=== PATIENT | male | born 1965 | race Caucasian/White ===

== ENCOUNTER 2021-09-04 10:33 | Observation (INO) ==
--- NOTE | 2021-08-31 11:47 | Anesthesiology Consultation ---
Date of Service August 31, 2021 Assessment & Plan (1) Encounter for pre-operative examination: Chart Review Chart Review: Acceptable Risk for Surgery (pending preop Covid testing results and DOS labs ) and Patient NOT seen in Pre Admission Testing -No preop labs done- will order CBC with diff, PRP, coags for DOS. Per nursing assessment 08/30/21, patient admits to travel to [facility] in the past 30 days. No known Covid positive exposures or Covid related symptoms. No known Covid infection in the past 90 days. Wears mask when required. Pt is fully vaccinated for Covid. Preop Covid testing 08/31/21= results pending History Surgery Operation Date: 09/04/21 12:15 Proposed Procedures p Right Shoulder Arthroscopic Subacromial Decompression, Distal Clavicle Excision, Rotator Cuff Repair with Possible Rotator Cuff Repair with Regen[employer]plant - Homar Taylor MD Height/Weight Height: 6 ft Weight: 145.15 kg Allergies Allergy/AdvReac Type Severity Reaction Status Date / Time bee venom protein (honey bee) Allergy Unknown Anaphylaxis Verified 08/30/21 09:00 Medications Home Medications Medication Instructions Recorded Confirmed Last Taken albuterol sulfate 90 mcg/actuation 2 puff INHALATION QID PRN 03/09/21 08/30/21 Unknown aerosol inhaler baclofen 10 mg tablet 10 mg PO TID PRN 03/09/21 08/30/21 Unknown bupropion HCl 150 mg 24 hr tablet, 150 mg PO BID 03/09/21 08/30/21 Unknown extended release buspirone 15 mg tablet 30 mg PO BID 03/09/21 08/30/21 Unknown cetirizine 10 mg tablet 10 mg PO QPM 03/09/21 08/30/21 Unknown cholecalciferol (vitamin D3) 125 125 mcg PO QAM 03/09/21 08/30/21 Unknown mcg (5,000 unit) tablet (Vitamin D3) cyanocobalamin (vitamin B-12) 1,000 mcg IM UD 03/09/21 08/30/21 Unknown 1,000 mcg/mL injection solution gabapentin 800 mg tablet 800 mg PO QID 03/09/21 08/30/21 Unknown lisinopril 20 1 tab PO QAM 03/09/21 08/30/21 Unknown mg-hydrochlorothiazide 12.5 mg tablet oxycodone 15 mg tablet 15 mg PO BID PRN 03/09/21 08/30/21 Unknown venlafaxine 150 mg 150 mg PO QAM 03/09/21 08/30/21 Unknown capsule,extended release 24 hr vitamin E 400 unit capsule 400 unit PO QAM 03/09/21 08/30/21 Unknown oxycodone 15 mg tablet,extended 15 mg PO BID 08/30/21 08/30/21 Unknown release,12 hr Past Medical History Medical History Anxiety Asthma Well controlled per pt, albuterol rescue 3 DAYS AGO - DENIES CURRENT FLARE UP Chronic back pain Chronic obstructive pulmonary disease Controlled, stable. Depression DVT (deep venous thrombosis) 1980s following trauma after fell off ladder GERD (gastroesophageal reflux disease) well controlled, stable, denies symptoms x 15 yrs ago since reduced stress, denies issues laying flat Hypertension Controlled, stable per pt Morbid obesity Multiple sclerosis Follows with PCP, baseline right leg neuropathy with limp, occasional falls, reports last flare 6 months ago, expresses has been advised to use cane. Sleep apnea BIPAP (not used d/t current device currently recall) Stroke x3, most recent > 7 years ago, residual short term memory loss Past Family History Family History Daughter Family history of reaction to anesthesia PONV, Slow to wake up Grandfather Family history of esophageal cancer Other Family history of cancer in father Past Surgical History Surgical History (Updated 08/31/21 @ 11:54 by Jasmin Russo PA-C) History of arthroscopy R knee History of back surgery 2018/2019 laminectomy L1-L3 per pt History of cardiac cath 1997 OR 1998 - NO FINDINGS Nodule of neck From posterior neck S/P insertion of spinal cord stimulator Medtronic vs St Erasmo per patient Does not have remote- spinal cord stimulator NO LONGER FUNCTIONS Social History Smoking Status: Former smoker tobacco type: cigarettes Do You Dip or Chew Tobacco: No Smoking End Date: NOV 2 YRS AGO Hx Alcohol Use: Yes Alcohol type: hard liquor alcohol intake frequency: a few times a month Alcohol Intake Frequency Comment: ON AVERAGE 3-4 X PER MONTH Hx Substance Use: No substance use type: prescription drug Testing Electrocardiogram Date: 03/14/21 Normal sinus rhythm, rate 75 bpm. Normal ECG per cardio Chest X-Ray Date: 03/24/21 No pulmonary nodules visible on the study. Left lung base atelectasis. Spinal cord stimulator in place.
--- NOTE | 2021-09-03 20:30 | History & Physical Report ---
Date of Service September 03, 2021 Assessment & Plan (1) Full thickness rotator cuff tear: Plan: Treatment options discussed with the patient. He has failed conservative measures. He has a full thickness tear of his rotator cuff. Surgical intervention recommended. Risks, benefits and alternatives to surgery including but not limited to infection, DVT, pain, stiffness, need for revision surgery, damage to blood vessels, damage to nerves, PE, , were discussed with the patient and they wish to proceed. Plan on right shoulder arthroscopy with subacromial decompression, distal clavicle excision, rotator cuff repair, possible rotator cuff repair with Regeneten biologic implant. Surgery scheduled for [facility] on 09/04/[address] Taylor. All questions answered. He will follow up post op. Rotator cuff tear trauma status: unspecified whether traumatic Laterality: right Qualified Code(s): M75.121 - Complete rotator cuff tear or rupture of right shoulder, not specified as traumatic History of Present Illness Chief Complaint: Right shoulder pain Primary Care Provider: Mihaela Alvarado 55 year old male with PMHx significant for HTN, COPD, stroke, MS, and axiety who presents with ongoing right shoulder pain. Pain in interfering with patients daily activities. He has failed conservative measures including pain medication and injection. He has a full thickness rotator cuff tear and surgical interve ntion recommended. Patient denies headaches, sweats, fevers, chills, double vision, blurred vision, cough, sore throat, dysphagia, chest pain, sob, wheezing, n/v/d/c, numbness, tingling, fatigue, urinary symptoms, mood disorders. ROS positive for right shoulder pain and stiffness. Allergies Allergy/AdvReac Type Severity Reaction Status Date / Time bee venom protein (honey bee) Allergy Unknown Anaphylaxis Verified 08/30/21 09:00 Home Medications Medication Instructions Recorded Confirmed Type albuterol sulfate 90 mcg/actuation 2 puff INHALATION QID PRN 03/09/21 08/30/21 History aerosol inhaler baclofen 10 mg tablet 10 mg PO TID PRN 03/09/21 08/30/21 History bupropion HCl 150 mg 24 hr tablet, 150 mg PO BID 03/09/21 08/30/21 History extended release buspirone 15 mg tablet 30 mg PO BID 03/09/21 08/30/21 History cetirizine 10 mg tablet 10 mg PO QPM 03/09/21 08/30/21 History cholecalciferol (vitamin D3) 125 125 mcg PO QAM 03/09/21 08/30/21 History mcg (5,000 unit) tablet (Vitamin D3) cyanocobalamin (vitamin B-12) 1,000 mcg IM UD 03/09/21 08/30/21 History 1,000 mcg/mL injection solution gabapentin 800 mg tablet 800 mg PO QID 03/09/21 08/30/21 History lisinopril 20 1 tab PO QAM 03/09/21 08/30/21 History mg-hydrochlorothiazide 12.5 mg tablet oxycodone 15 mg tablet 15 mg PO BID PRN 03/09/21 08/30/21 History venlafaxine 150 mg 150 mg PO QAM 03/09/21 08/30/21 History capsule,extended release 24 hr vitamin E 400 unit capsule 400 unit PO QAM 03/09/21 08/30/21 History oxycodone 15 mg tablet,extended 15 mg PO BID 08/30/21 08/30/21 History release,12 hr Past Med/Surg History Medical History (Updated 09/03/21 @ 20:28 by Jose Armando Mello PA-C) Anxiety Asthma Well controlled per pt, albuterol rescue 3 DAYS AGO - DENIES CURRENT FLARE UP Chronic back pain Chronic obstructive pulmonary disease Controlled, stable. Depression DVT (deep venous thrombosis) 1980s following trauma after fell off ladder GERD (gastroesophageal reflux disease) well controlled, stable, denies symptoms x 15 yrs ago since reduced stress, denies issues laying flat Hypertension Controlled, stable per pt Morbid obesity Multiple sclerosis Follows with PCP, baseline right leg neuropathy with limp, occasional falls, reports last flare 6 months ago, expresses has been advised to use cane. Sleep apnea BIPAP (not used d/t current device currently recall) Stroke x3, most recent > 7 years ago, residual short term memory loss Surgical History (Updated 08/31/21 @ 11:54 by Jasmin Russo PA-C) History of arthroscopy R knee History of back surgery 2017/2018 laminectomy L1-L3 per pt History of cardiac cath 1997 OR 1998 - NO FINDINGS Nodule of neck From posterior neck S/P insertion of spinal cord stimulator Medtronic vs St Erasmo per patient Does not have remote- spinal cord stimulator NO LONGER FUNCTIONS Family History Daughter Family history of reaction to anesthesia PONV, Slow to wake up Grandfather Family history of esophageal cancer Other Family history of cancer in father Social History (Updated 03/09/21 @ 10:51 by Joelle Corbin RN) Smoking Status: Former smoker Second Hand Exposure: Yes (SPOUSE USED TO SMOKE, PARENTS SMOKED); Hx Alcohol Use: Yes Alcohol type: hard liquor Hx Substance Use: No Preferred Language: Niuean Communication Ability: Effective Bus Boy Required: No Beliefs That Will Affect Care: None Current Living Situation: Spouse and Family Current Living Situation Comment: AND SON WHEN HOME FROM [employer] current occupational status: disabled Feels Safe at Home: Yes Assistive Devices: Glasses Review of Systems All systems reviewed & are unremarkable except as noted in HPI & below Physical Exam Constitutional: well developed and well nourished; no acute distress Eyes: PERRL, conjunctivae normal, anicteric sclerae ENMT: external ear and nose normal, oropharynx normal Neck: trachea midline, no thyromegaly Respiratory: normal respiratory effort, lungs clear to auscultation Cardiovascular: RRR, no murmur, no edema Musculoskeletal: Right shoulder: Tenderness AC joint, biceps tendon, AL acromion. Positive impingement signs. Positive O'nellie's, positive cross body, positive Speed's. Active painful ROM. FF to 180 degrees, abduction to 180 degrees. Strength testing is painful. Skin: no rashes, warm and dry Neurologic: patellar DTR's 2+ bilat, sensation intact Psychiatric: A+Ox3, euthymic affect Results & Data ([facility]) Diagnostic Findings Right shoulder CT arthrogram demonstrates subacromial impingement with hypertrophic AC joint with AC joint osteoarthritis. He has a full thickness tear of his supraspinatus with dye communicating to subacromial space.
[~2021-09-04 10:33] MED LIST: BUPIVACAINE 0.5 % 5 MG/1 ML PF 10ML VIAL ONE; LR 15ML/HR IV SCH
[2021-09-04] MEDS ORDERED: BUPIVACAINE 0.25% 30 ML VIAL ONE (10:43)
[2021-09-04] MEDS ORDERED: EPINEPHrine INJ 1 MG/ML AMP ONE (10:44)
[2021-09-04 11:20] LABS: Basophils # (auto) 0.04 K/uL (0-0.2); Basophils % (auto) 0.6 %; Eosinophils # (auto) 0.33 K/uL (0-0.5); Eosinophils % (auto) 4.7 %; Hematocrit (blood only) 46.7 % (42-52); Hemoglobin 15.7 g/dL (14.0-18.0); Immature Granulocytes # (auto) 0.01 K/uL (0.00-0.02); Immature Granulocytes % (auto) 0.1 %; Lymphocytes # (auto) 3.47 K/uL (1.2-3.4); Lymphocytes % (auto) 49.6 %; Mean Corpuscular Hemoglobin 30.9 pg (25-34); Mean Corpuscular Volume 91.9 fL (80-100); Mean Platelet Volume 9.9 fL (7.4-10.4); Monocytes # (auto) 0.75 K/uL (0.11-0.59); Monocytes % (auto) 10.7 %; Neutrophils % (auto) 34.3 %; Platelet Count 294 K/uL (130-400); RDW Standard Deviation 43.6 fL (36.4-46.3); Red Blood Count 5.08 M/uL (4.7-6.1)
[2021-09-04 11:25] LABS: BUN Creatinine Ratio 11.3 (10-20); Calcium 9.3 mg/dl (8.5-10.1); Creatinine Clr Calc Pharmacy 109.5 ml/min; Est GFR (African American) 83.2 ml/min; Est GFR (Non-African American) 71.7 ml/min; Potassium 3.9 mmol/L (3.5-5.1)
[2021-09-04 11:39] LABS: Mean Corpuscular Hgb Conc 33.6 g/dL (32-36)
[2021-09-04 11:54] LABS: Partial Thromboplastin Ratio 1.1; Partial Thromboplastin Time 31.5 Seconds (21.0-31.0); Prothrombin Time 10.8 Seconds (9.0-12.0)
[2021-09-04] MEDS ORDERED: DEXAMETHASONE SOD INJ 4 MG/ML VIAL ONE (12:49)
[2021-09-04] MEDS ORDERED: PROPOFOL IV EMULSION 10 MG/ML 20 ML VIAL IV ONE (12:49)
[2021-09-04] MEDS ORDERED: LIDOCAINE 2% 2 ML VIAL/AMP(20MG/ML) INFIL ONE (12:49)
[2021-09-04] MEDS ORDERED: ONDANSETRON INJ 2 MG/ML 2 ML VIAL ONE (12:49)
[2021-09-04] MEDS ORDERED: MIDAZOLAM HCL 1 MG/ML 2ML VIAL ONE ×2 (12:49→12:50)
--- NOTE | 2021-09-04 13:16 | History & Physical Bridge Note ---
Date of Service September 04, 2021 History & Physical Bridge Note I have examined the patient, reviewed the History & Physical and in the interval since the performance of the History & Physical I have noted the following changes of clinical significance: no changes noted
[2021-09-04] MEDS ORDERED: ONDANSETRON INJ 2 MG/ML 2 ML VIAL IV PRN ×2 (13:25→17:51)
[2021-09-04] MEDS ORDERED: ePHEDrine sulfate 50 MG/ML AMP IV PRN (13:25)
[2021-09-04] MEDS ORDERED: HYDROmorphone INJ 1 MG/ML SYRINGE IV PRN (13:25)
[2021-09-04] MEDS ORDERED: fentaNYL citrate 100 MCG/2 ML VIAL IV PRN (13:25)
[2021-09-04] MEDS ORDERED: ATROPINE SULFATE 0.1 MG/ML 10ML SYR IV PRN (13:25)
[2021-09-04] MEDS ORDERED: EPINEPHrine HCL INJ 1 MG/ML 30ML ONE (13:27)
[2021-09-04] MEDS ORDERED: fentaNYL citrate 100 MCG/2 ML VIAL ONE (14:01)
[2021-09-04] MEDS ORDERED: SUCCINYLCHOLINE 100MG/5ML SYR IV ONE (14:01)
[2021-09-04] MEDS ORDERED: ROCURONIUM BROMIDE 10 MG/ML 5 ML VIAL IV ONE (14:01)
[2021-09-04] MEDS ORDERED: PHENYLEPHRINE HCL 10 MG/ML VIAL ONE (14:19)
--- NOTE | 2021-09-04 16:20 | Post Operative Brief Note ---
Immediate Post Op Note v1 Date of Surgery September 04, 2021 Pre & Post Diagnosis Operation Date: 09/04/21 12:15 Pre-Op Diagnosis: Right Shoulder Impingement Syndrome, Osteoarthritis AC joint, rotator cuff tendinopathy with suspected bursal sided rotator cuff tear, obesity BMI 44. Post-Op Diagnosis: Chronic appearing high Grade Bursal Sided Rotator Cuff tear with underlying rotator cuff tendinopathy and interstitial tearing rotator cuff with subacromial impingement and AC joint osteoarthritis and subacromial bursitis, obesity BMI 44. I identified the patient and participated in the time-out.: Yes Procedure Operation Date: 09/04/21 12:15 Actual Procedures p Right Shoulder arthroscopic rotator cuff repair high-grade bursal sided rotator cuff tear with subacromial bursectomy and arthroscopic Subacromial Decompression, Distal Clavicle Excision - Homar Taylor MD Surgeon Homra Taylor MD Test Kitchen Home Economist Adriano LO Estimated Blood Loss 3 Findings Consistent with Post-Op Diagnosis Anesthesia Type General Regional Complications none Disposition Disposition: Recovery Room Overlapping Procedure I was immediately available: during the entire case.
--- NOTE | 2021-09-04 16:38 | Operative Report ---
Post Operative Report Pre & Post Diagnosis Operation Date: 09/04/21 12:15 Pre-Op Diagnosis: Right Shoulder rotator cuff tendinopathy suspected bursal sided rotator cuff tear with subacromial impingement and hypertrophic AC joint osteoarthritis, subacromial bursitis, obesity BMI 44 Post-Op Diagnosis: Right shoulder chronic appearing large high-grade bursal sided partial tear rotator cuff, subacromial impingement syndrome, hypertrophic AC joint osteoarthritis contributing to impingement, subacromial bursitis, obesity BMI 44 I identified the patient and participated in the time-out.: Yes Procedure Operation Date: 09/04/21 12:15 Actual Procedures p Right Shoulder arthroscopic rotator cuff repair high-grade bursal side rotator cuff tear, subacromial decompression, distal clavicle excision, subacromial bursectomy. Homar Taylor MD Surgeon Homar Taylor MD Recycling Specialist Adriano LO Estimated Blood Loss 3 Findings Consistent with Post-Op Diagnosis Specimens None Anesthesia Type General Regional Complications none Disposition Disposition: Recovery Room Indications 55-year-old male with chronic right shoulder pain. Patient has x-rays demonstrate hypertrophic AC joint osteoarthritis with the type II 3 acromion p rocess with spurring anterior acromion with inferior AC joint spurs causing subacromial impingement. CT arthrogram demonstrates my interpretation bursal sided rotator cuff tear with interstitial tear rotator cuff with bursitis which appears to be chronic but this does not communicate with the joint thigh which has a brighter appearance with probable articular side of the rotator cuff still being intact. Patient also has chronic pain syndrome and obesity. Description of Procedure The patient was to the operating room anesthetized under regional block and general anesthesia. The patient was positioned on the operating table in the 70 beachchair position. All of the other extremities were well-padded. The right upper extremity was prepped and draped in the usual sterile fashion. Examination demonstrated moderately obese arm more abdominal obesity than of the arm. Good passive range of motion. Arthroscopy of the shoulder was performed via anterior and posterior arthroscopy portals. Posterior portal was placed in the soft spot and the anterior portal was placed in the rotator interval. Subsequent portals included lateral subacr omial working portals and anterior and posterior superior lateral incisions for suture anchor placement. The following findings were noted: Humeral head and glenoid had normal articular surfaces. The biceps tendon was normal. Subscapularis tendon was normal. Supraspinatus tendon and infraspinatus had some tiny splits in the tendon but no clear full-thickness tear. This was consistent with tendinopathy. There is no fraying of the tendon at all on the articular side. Glenoid labrum was intact circumferentially including the superior labrum. Subacromial space was a very large crescent tear on the bursal side extending into a large interstitial tear involving the entire supraspinatus and some of the anterior infraspinatus. There is a smooth appearance to the intact tissue that was still attached to the greater trochanter consistent with chronic appearance of the tear. There was chronic subacromial bursitis and impingement. There was fraying the CA ligament type III acromion with a substantial spur extending into the CA ligament and some spur extending to the lateral acromion. There are very large inferior AC joint spurs with very tight subacromial space under the hypertrophic distal clavicle with arthritic changes of the AC joint. There was chronic scarred subacromial bursitis. Attention was first taken to clearing out all of the thickened subacromial bursa over the rotator cuff tear so it could be visualized better. The entire tear was visualized with large crescent tear with interstitial component and this was able to be mobilized over to the greater tuberosity into an anatomical position. The lateral most aspect of the tear at the greater tuberosity was debrided taking care not to detach any of the intact tissue. Fluoroscopic rasp was used to roughen up the smooth bursal surface of the underlying intact rotator cuff tissue in the undersurface of the crescent tear and interstitial tear was debrided with a 4.5 full-radius resector blade and a rasp was used to try to preserve as much tendon tissue as possible. The bursa and periosteum on the undersurface of the acromion was ablated with the radiofrequency ablator and the CA ligament was released off the anterior acromion. The CA ligament was debrided back. A 5.5 bur was used to plane down the acromion to type I flat shape. A radio frequency ablator was used to ablate the undersurface of 1 cm of the distal clavicle ablating the inferior capsule. This exposed the spurs on the undersurface of the clavicle. A 5.5 bur was used to resect 1 cm distal clavicle using the liberty through both the lateral and anterior portal. The superior and posterior capsule was preserved for stability. The rotator cuff was then repaired with an ultra braid tape used as a ripstop suture placed in an inverted mattress type fashion. 2 triple loaded 5.5 Helicoil suture anchors were placed at the lateral rotator cuff attachment site right at the area where the intact rotator cuff tissue was still attached 1 anterior and 1 posterior. 2 out of 3 of the ultra braid sutures from each anchor were passed around the ripstop suture. Sutures were passed into both supraspinatus and infraspinatus tendon tissue. The sutures were tied with A Spooner sliding locking knot with 3 reversed half hitches and alternating posts. The ultra braid tape tails posterior and anterior placed into posterior and anterior 5.5 footprint anchors laterally and were tensioned appropriately. This tape acted as a ripstop suture and took tension off the repair. The repair was secure with the arm to side and with passive range of motion there was no impingement. The portal sites were closed with interrupted nylon sutures. Sterile dressings were applied and a sling immobilizer. The patient tolerated the procedure well. My physician phlebotomist lab assistant Adriano LO participated as my accounting assistant and assisted in all aspects of the procedure including assisted in arm positioning, instrument management, suture management when indicated, incision closure, sling application, and will participate in the postoperative care of the patient. I attest to the content of the Intraoperative Record and any orders documented therein. Any exceptions are noted below.
--- NOTE | 2021-09-04 16:59 | Anesthesiology Progress Note ---
Date of Service September 04, 2021 Anesthesia Post Procedure Vital Signs Vital Signs: Temp Pulse Pulse Resp BP Pulse Ox 09/04/21 16:50 36.4 C L 92 H 16 109/71 94 09/04/21 16:40 96 H 16 121/70 94 09/04/21 16:30 90 16 116/77 94 09/04/21 16:22 36.5 C 93 H 16 133/78 94 09/04/21 11:20 36.8 C 89 20 117/86 97 Pain Intensity Lower Back: Pain Intensity: 1 Transfer of Care Handoff Completed per policy Notes Mental Status: alert / awake / arousable Patient Amnestic to Procedure: Yes Nausea / Vomiting: adequately controlled Pain: adequately controlled Airway Patency, RR, SpO2: stable & adequate BP & HR: stable & adequate Hydration State: stable & adequate Anesthetic Complications: no major complications apparent and Pt Satisfied with anesthetic care Notes: The patient is awake and comfortable. He will have continuous pulse oximetry on the floor.
[2021-09-04] MEDS ORDERED: KETOROLAC TROMETHAMINE 15 MG/ML VIAL IV PRN (17:51)
[2021-09-04] MEDS ORDERED: SODIUM CHLORIDE 0.9% 1000ML 1,000 ML IV SCH (17:51)
[2021-09-04] MEDS ORDERED: HYDROmorphone INJ 0.5 MG/0.5 ML SYR IV PRN (17:51)
[2021-09-04] MEDS ORDERED: METOCLOPRAMIDE HCL INJ 5 MG/ML 2 ML VIAL IV PRN (17:51)
[2021-09-04] MEDS ORDERED: BACLOFEN 10 MG TAB PO PRN (17:51)
[2021-09-04] MEDS ORDERED: oxyCODONE HCL IR 5 MG TAB (IMMEDIATE RELEASE) PO PRN (17:51)
[2021-09-04] MEDS ORDERED: MAGNESIUM HYDROXIDE SUSP 30 ML UDC PO PRN (17:51)
[2021-09-04] MEDS ORDERED: NALOXONE HCL 0.4 MG/1 ML VIAL/CARP IV PRN (17:51)
[2021-09-04] MEDS ORDERED: bisacodyL 10 MG SUPP PR PRN (17:51)
[2021-09-04] MEDS ORDERED: CYANOCOBALAMIN 1000 MCG/ML VIAL IM SCH (17:51)
[2021-09-04] MEDS ORDERED: ALBUTEROL HFA 8 GM INHALER INH PRN (17:51)
--- NOTE | 2021-09-04 18:51 | Hospitalist Consultation ---
Date of Consultation September 04, 2021 Assessment & Plan (1) Full thickness rotator cuff tear: As per HPI- POD #0 - Pain control per primary service- rescue Narcan as available - IVF per primary service - Diet per primary service - Dressing per primary service - Drains per primary service - Transfusion per primary service - Consider chronic pain consultation if pain becomes challenging following when local anesthesia wears off - PT/OT per primary service - ABX per primary service (2) Hypertension: Controlled - follow hemodynamics and renal function in AM - if stable in AM restart (3) Stroke: History of unsure of vessel or type - the patient is not on disease modifying medications to include asa and/or plavix (4) Asthma: Well controlled per the patient - continue EMI (5) Sleep apnea: (6) Anxiety: (7) Chronic back pain: History of Present Illness Reason for Consultation: medical management Requesting Physician: Claudia Attending Physician: Homar Taylor MD History of Present Illness 55 YOM with no information on chart for review. Patient with reported history of chronic low back pain and leg pain- nerve stimulator in place reported ~ 2013 that does not function, chronic narcotic use, YARY on BiPAP at night (unsure of settings- sent device back secondary to recall), Anxiety/depression, seasonal allergies, HTN, CVA with short term memory recall- he is unsure of type/vessel. Hospitalist service was consulted for medical management following right shoulder arthroscopic rotator cuff repair with subacromial bursectomy and subacromial decompression and distal clavicle excision under general and regional anesthesia with intubation and EBL of 3ml. Patient was evaluated in his room postoperatively. Labs from today reviewed, vital signs reviewed. Patient is briskly awake and states he is "very comfortable" following his procedure, remains with some effects from his regional anesthesia. He has no postoperative nausea, is preparing to eat his dinner. No difficulty breathing endorsed and throat is only minimally sore. 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 For his anxiety and depression he feels this is well controlled and follows with his PCP. He has his chronic pain Oxycodone SR and Oxycodone IR ordered as well as IV for acute pain. Will order BiPAP at night and reviewed use with patient with possible increased narcotic use postoperatively. He endorses no smoking, and social drinker once a week or every other week. Recommendations: - Tiered pain control with rescue Narcan as you have - BiPAP ordered 02/21 or titrate for adequate VT/SPO2 and patient tolerance- should wear at night as well as naps through the day - Follow pain control- if challenging consider further evaluation from chronic pain with his chronic opiod use - Hold AISHA/HCTz in am- follow renal function and hemodynamics- restart when applicable Allergies Allergy/AdvReac Type Severity Reaction Status Date / Time bee venom protein (honey bee) Allergy Unknown Anaphylaxis Verified 09/04/21 11:07 Home Medications Medication Instructions Recorded Confirmed Type albuterol sulfate 90 mcg/actuation 2 puff INHALATION QID PRN 03/09/21 09/04/21 History aerosol inhaler baclofen 10 mg tablet 10 mg PO TID PRN 03/09/21 09/04/21 History bupropion HCl 150 mg 24 hr tablet, 150 mg PO BID 03/09/21 09/04/21 History extended release buspirone 15 mg tablet 30 mg PO BID 03/09/21 09/04/21 History cetirizine 10 mg tablet 10 mg PO QPM 03/09/21 09/04/21 History cholecalciferol (vitamin D3) 125 125 mcg PO QAM 03/09/21 09/04/21 History mcg (5,000 unit) tablet (Vitamin D3) cyanocobalamin (vitamin B-12) 1,000 mcg IM UD 03/09/21 09/04/21 History 1,000 mcg/mL injection solution gabapentin 800 mg tablet 800 mg PO QID 03/09/21 09/04/21 History lisinopril 20 1 tab PO QAM 03/09/21 09/04/21 History mg-hydrochlorothiazide 12.5 mg tablet oxycodone 15 mg tablet 15 mg PO BID PRN 03/09/21 09/04/21 History venlafaxine 150 mg 150 mg PO QAM 03/09/21 09/04/21 History capsule,extended release 24 hr vitamin E 400 unit capsule 400 unit PO QAM 03/09/21 09/04/21 History oxycodone 15 mg tablet,extended 15 mg PO BID 08/30/21 09/04/21 History release,12 hr Patient History Medical History (Updated 09/04/21 @ 18:47 by LUIS A Matos) Anxiety Asthma Well controlled per pt, albuterol rescue 3 DAYS AGO - DENIES CURRENT FLARE UP Chronic back pain Chronic obstructive pulmonary disease Controlled, stable. Depression DVT (deep venous thrombosis) 1980s following trauma after fell off ladder GERD (gastroesophageal reflux disease) well controlled, stable, denies symptoms x 15 yrs ago since reduced stress, denies issues laying flat Hypertension Controlled, stable per pt Morbid obesity Multiple sclerosis Follows with PCP, baseline right leg neuropathy with limp, occasional falls, reports last flare 6 months ago, expresses has been advised to use cane. Sleep apnea BIPAP (not used d/t current device currently recall) Stroke x3, most recent > 7 years ago, residual short term memory loss Surgical History History of arthroscopy R knee History of back surgery 2017/2018 laminectomy L1-L3 per pt History of cardiac cath 1997 OR 1998 - NO FINDINGS Nodule of neck From posterior neck S/P insertion of spinal cord stimulator [employer] vs [employer] per patient Does not have remote- spinal cord stimulator NO LONGER FUNCTIONS Family History Daughter Family history of reaction to anesthesia PONV, Slow to wake up Grandfather Family history of esophageal cancer Other Family history of cancer in father Social History (Updated 03/09/21 @ 10:51 by Joelle Corbin RN) Smoking Status: Former smoker Smoking End Date: NOV 2 YRS AGO; Second Hand Exposure: Yes (SPOUSE USED TO SMOKE, PARENTS SMOKED); Do You Dip or Chew Tobacco: No; Hx Alcohol Use: Yes Alcohol type: hard liquor Hx Substance Use: No Preferred Language: Afghan Communication Ability: Effective Featherer Required: No Beliefs That Will Affect Care: None Current Living Situation: Spouse and Family Current Living Situation Comment: AND SON WHEN HOME FROM COLLEGE current occupational status: disabled Other Information That Helps Us Care for You: No Feels Safe at Home: Yes Assistive Devices: Glasses Review of Systems Review of Systems: REVIEW OF SYSTEMS: Constitutional: No fever, sweats or chills Eyes: No diplopia, no worsening or blurred vision ENT: normal hearing, no trouble swallowing Respiratory: (+) YARY No cough, sputum, dyspnea at rest or on exertion Cardiovascular: No chest pain, tightness or palpitations Abdomen: (+) frequent loose stools, No pain, nausea, vomiting, constipation Musculoskeletal: (+) chronic back and leg pain, right shoulder pain Neurologic: No weakness, numbness/tingling, or balance problems Psychiatric: (+) anxiety or depression Skin: No rash or itch Physical Exam Physical Exam: PHYSICAL EXAM: General: awake, alert, no apparent distress Head: Normocephalic, atraumatic ENT: PERRLA, EOMI, no pharyngeal exudate, mucous membranes moist Neuro: AAO x 3, speech clear and appropriate, strength intact bilaterally 5/5 upper and lower. Right shoulder to ac with remaining effects fromo local anesthesia. Sensation intact to chest, neck, jaw and face. Chest: equal rise and fall of the chest, no accessory muscle use, no heaves or thrills, Clear to auscultation, on room air, Cardiac: Regular rate and rhythm, S1 S2, skin warm dry, cap refill <3 seconds, peripheral pulses +2 no JVD, no murmur, no edema GI: NABS x 4 quadrants, soft, nontender to palpation, no rebound, guarding or tenderness : Spontaneously voiding, no pain, Extremities: Normal inspection, no peripheral edema or erythema, calfs nontender to palpation- scd's in place Psych: Normal mood and affect Skin: no rash or erythema Results & Data Results & Data ([facility]) Vital Signs (Past 12 Hours) Vital Signs Temp Pulse Pulse Resp BP Pulse Ox 09/04/21 18:18 36.7 C 85 18 127/82 93 09/04/21 17:54 37 C 85 18 107/68 94 09/04/21 17:30 90 20 123/70 93 09/04/21 17:20 91 H 18 107/74 93 09/04/21 17:10 90 16 102/73 94 09/04/21 17:00 36.4 C L 92 H 16 107/72 94 09/04/21 16:50 92 H 16 109/71 94 09/04/21 16:40 96 H 16 121/70 94 09/04/21 16:30 90 16 116/77 94 09/04/21 16:22 36.5 C 93 H 16 133/78 94 09/04/21 11:20 36.8 C 89 20 117/86 97 Laboratory Results Abnormal lab results 09/04/21 09/04/21 Range/Units 10:55 10:55 Lymph # (Auto) 3.47 H (1.2-3.4) K/uL [place] # (Auto) 0.75 H (0.11-0.59) K/uL APTT 31.5 H (21.0-31.0) Seconds Medications Administered Home Medications albuterol sulfate 90 mcg/actuation aerosol inhaler 2 puff INHALATION QID PRN 03/09/21 [History Confirmed 09/04/21] baclofen 10 mg tablet 10 mg PO TID PRN 03/09/21 [History Confirmed 09/04/21] bupropion HCl 150 mg 24 hr tablet, extended release 150 mg PO BID 03/09/21 [History Confirmed 09/04/21] buspirone 15 mg tablet 30 mg PO BID 03/09/21 [History Confirmed 09/04/21] cetirizine 10 mg tablet 10 mg PO QPM 03/09/21 [History Confirmed 09/04/21] cholecalciferol (vitamin D3) 125 mcg (5,000 unit) tablet (Vitamin D3) 125 mcg PO QAM 03/09/21 [History Confirmed 09/04/21] cyanocobalamin (vitamin B-12) 1,000 mcg/mL injection solution 1,000 mcg IM UD 03/09/21 [History Confirmed 09/04/21] gabapentin 800 mg tablet 800 mg PO QID 03/09/21 [History Confirmed 09/04/21] lisinopril 20 mg-hydrochlorothiazide 12.5 mg tablet 1 tab PO QAM 03/09/21 [History Confirmed 09/04/21] oxycodone 15 mg tablet 15 mg PO BID PRN 03/09/21 [History Confirmed 09/04/21] venlafaxine 150 mg capsule,extended release 24 hr 150 mg PO QAM 03/09/21 [History Confirmed 09/04/21] vitamin E 400 unit capsule 400 unit PO QAM 03/09/21 [History Confirmed 09/04/21] oxycodone 15 mg tablet,extended release,12 hr 15 mg PO BID 08/30/21 [History Con firmed 09/04/21] Active Medications Acetaminophen (Acetaminophen 500 Mg Tab) 1,000 mg PO Q8 HANSEL Stop: 10/04/21 21:59 Albuterol (Albuterol Hfa 8 Gm Inhaler) 2 puffs INH QID PRN; Protocol PRN Reason: Wheezing Stop: 10/04/21 17:50 Baclofen (Baclofen 10 Mg Tab) 10 mg PO TID PRN PRN Reason: Muscle Spasm Stop: 10/04/21 17:50 Bisacodyl (Bisacodyl 10 Mg Supp) 10 mg RI DAILY PRN PRN Reason: Constipation Stop: 10/04/21 17:50 Bupropion HCl (Bupropion Xl 150 Mg Tabcr) 150 mg PO BID HANSEL Stop: 10/04/21 20:59 Buspirone HCl (Buspirone 15 Mg Tab) 30 mg PO BID HANSEL Stop: 10/04/21 20:59 Cetirizine HCl (Cetirizine Hcl 10 Mg Tablet) 10 mg PO QPM HANSEL Stop: 10/04/21 20:59 Cyanocobalamin (Cyanocobalamin 1000 Mcg/Ml Vial) 1,000 mcg IM UD HANSEL Stop: 10/04/21 17:50 Docusate Sodium (Docusate Sodium 100 Mg Cap) 100 mg PO BID HANSEL Stop: 10/04/21 20:59 Gabapentin (Gabapentin 800 Mg Tab) 800 mg PO QID HANSEL Stop: 10/04/21 20:59 Lisinopril/HCTZ (Lisinopril/Hctz 20/12.5mg 1 Tab Tab) 1 tab PO QAM HANSEL Stop: 10/05/21 08:59 Hydromorphone HCl (Hydromorphone Inj 0.5 Mg/0.5 Ml Syr) 0.5 mg IV Q4H PRN PRN Reason: Pain or Pre PT Stop: 09/18/21 17:50 Sodium Chloride (Nss 1000ml) 1,000 mls @ 100 mls/hr IV .Q10H HANSEL Stop: 09/05/21 06:00 Last Admin: 09/04/21 18:04 Dose: 100 mls/hr Documented by: Ketorolac Tromethamine (Ketorolac Tromethamine 15 Mg/Ml Vial) 15 mg IV ONCE PRN PRN Reason: Pain Stop: 09/09/21 17:50 Magnesium Hydroxide (Magnesium Hydroxide Susp 30 Ml Udc) 30 ml PO Q6H PRN PRN Reason: Constipation Stop: 10/04/21 17:50 Metoclopramide HCl (Metoclopramide Hcl Inj 5 Mg/Ml 2 Ml Vial) 10 mg IV Q6H PRN PRN Reason: Nausea And Vomiting Stop: 10/04/21 17:50 Multivitamins (Multivitamin Tab) 1 tab PO QAM HANSEL Stop: 10/05/21 08:59 Naloxone HCl (Naloxone Hcl 0.4 Mg/1 Ml Vial/Carp) 0.1 mg IV Q5M PRN PRN Reason: Oversedation/Resp Depression Stop: 10/04/21 17:50 Ondansetron HCl (Ondansetron Inj 2 Mg/Ml 2 Ml Vial) 4 mg IV Q6H PRN PRN Reason: Nausea And Vomiting Stop: 10/04/21 17:50 Oxycodone HCl (Oxycodone Hcl Ir 5 Mg Tab (Immediate Release)) 15 mg PO BID PRN PRN Reason: Pain Stop: 09/18/21 17:50 Oxycodone HCl (Oxycodone Hcl 15 Mg Tabcr (Oxycontin)) 15 mg PO BID HANSEL Stop: 09/09/21 20:59 Sennosides (Senna 8.6 Mg Tab) 17.2 mg PO HS HANSEL Stop: 10/04/21 20:59 Venlafaxine HCl (Venlafaxine Hcl Xr 150 Mg Capxr) 150 mg PO QAM [facility] Stop: 10/05/21 08:59 Vitamin D (Cholecalciferol 5,000 Units 125 Mcg Tab) 5,000 units PO QAM HANSEL Stop: 10/05/21 08:59 Vitamin E (Tocopheryl, Dl-Alpha 100 Units Cap) 400 units PO QAM HANSEL Stop: 10/05/21 08:59 ECG Additional Comments: None on chart for review- denies any chest pain or dyspnea at this time PG Care Time/CCT Total # of Minutes Spent Total Time Spent with Patient: Total time spent is greater than 50% in coordination of care (as documented) at patient's floor/unit and/or counseling patient: Coding Diagnoses Full thickness rotator cuff tear M75.121 Rotator cuff tear trauma status: unspecified whether traumatic Laterality: right Stroke I63.9 Asthma J45.909 Anxiety F41.9 Chronic back pain M54.9; G89.29 Hypertension I10 Sleep apnea G47.30 (1) Full thickness rotator cuff tear Rotator cuff tear trauma status: unspecified whether traumatic Laterality: right Qualified Code(s): M75.121 - Complete rotator cuff tear or rupture of right shoulder, not specified as traumatic
[2021-09-04] MEDS: busPIRone 15 MG TAB PO SCH (20:50)
[2021-09-04] MEDS: SENNA 8.6 MG TAB PO SCH ×2 (20:51→20:53)
[2021-09-04] MEDS: GABAPENTIN 800 MG TAB PO SCH (20:51)
[2021-09-04] MEDS: DOCUSATE SODIUM 100 MG CAP PO SCH (20:51)
[2021-09-04] MEDS: oxyCODONE HCL 15 MG TABCR (OxyCONTIN) PO SCH (20:51)
[2021-09-04] MEDS: ACETAMINOPHEN 500 MG TAB PO SCH (20:52)
--- NOTE | 2021-09-04 20:53 | History and Physical Report ---
DATE OF ADMISSION: 09/04/2021. CHIEF COMPLAINT: Status post right shoulder repair. HISTORY OF PRESENT ILLNESS: This is a 55-year-old male with past medical history significant for obstructive sleep apnea, not using CPAP, nonalcoholic steatohepatitis, chronic back pain, morbid obesity, ambulatory dysfunction, spinal stenosis, depression, status post right shoulder surgery, tolerated the procedure okay. Resting comfortably, hemodynamically stable. Denies any pain currently. No headache, no blurred vision, no double vision, no earache, no runny nose, no sore throat. No cough. No feeling hot or cold. No nausea, no chest pain, no shortness of breath, no abdominal pain. Had normal bowel movements yesterday, otherwise micturating okay. No swelling in the legs. ALLERGIES: BEE VENOM. PAST MEDICAL HISTORY: As mentioned above. PAST SURGICAL HISTORY: Dental surgery, EGD, EGD with endoscopic ultrasound, right knee meniscal arthroscopy, lumbar hemilaminectomy. MEDICATIONS: The patient is on albuterol 2 puffs inhalation q.i.d. p.r.n., baclofen 10 mg p.o. t.i.d. p.r.n., bupropion 150 mg p.o. b.i.d., buspirone 30 mg p.o. b.i.d., cetirizine 10 mg p.o. p.m., vitamin D 125 mcg p.o. a.m., vitamin B12 1000 mcg IM as directed, gabapentin 800 mg p.o. daily, lisinopril/hydrochlorothiazide 20/12.5 mg p.o. daily, oxycodone 15 mg p.o. b.i.d. p.r.n., OxyContin 15 mg p.o. b.i.d., venlafaxine 150 mg p.o. a.m., vitamin E 400 international units p.o. a.m. FAMILY HISTORY: Significant for father had kidney cancer, heart disorder; mother has skin cancer; maternal grandfather had stroke; daughter has depression; son has allergies. SOCIAL HISTORY: , former smoker, smoked an average of 0.25 packs a day for 25 years. Alcohol occasional. Drug use in the 1980s. REVIEW OF SYSTEMS: As per HPI. Rest of review of systems is negative. PHYSICAL EXAMINATION: GENERAL: The patient is a morbidly obese, not in acute distress. VITAL SIGNS: Temperature 36.7, pulse 85, respiratory rate 16, blood pressure 104/69, oxygen 95% on nasal cannula. HEENT: Atraumatic. NECK: No JVD. No neck masses seen. CARDIOVASCULAR: S1 and S2 heard. Regular rate and rhythm. No murmur, no gallop. RESPIRATORY SYSTEM: Normal AP diameter. No accessory muscle use. No wheezing, no crackles. ABDOMEN: Soft, bowel sounds are present, nontender, no distention. CENTRAL NERVOUS SYSTEM: Cranial nerves II-XII grossly intact, nonfocal. EXTREMITIES: Status post right shoulder surgery, right shoulder is in a dressing. No lower extremity edema or erythema seen. LABORATORY DATA: WBC 7, hemoglobin 15.7, hematocrit 46.7, platelets 294. PT 10.8, INR 1, APTT 31.5. Sodium 137, potassium 3.9, chloride 99, bicarbonate 30, BUN 13, creatinine 1.1, serum glucose 88, calcium 9.3. ASSESSMENT AND PLAN: This is a 55-year-old male who presents with status post right shoulder surgery. 1. Right shoulder surgery for rotator cuff tear: Management as per orthopedics. 2. Obstructive sleep apnea: Not using CPAP at home, currently on oxygen. 3. History of depression and Anxiety: Continue home medication of bupropion (Wellbutrin), venlafaxine, and buspirone. 4. Hypertension: Continue his home lisinopril/hydrochlorothiazide. We will monitor his blood pressure. 5. Deep venous thrombosis prophylaxis and disposition: As per orthopedics. Job ID: [id number] [facility]
[2021-09-04] MEDS ORDERED: CETIRIZINE HCL 10 MG TABLET PO SCH (21:00)
[2021-09-04] MEDS: buPROPion XL 150 MG TABCR PO SCH (21:40)
[2021-09-04] MEDS ORDERED: Nursing to Pharmacy Communication SCH (21:45)
[2021-09-05] MEDS: ACETAMINOPHEN 500 MG TAB PO SCH (05:20)
[2021-09-05 06:38] LABS: Basophils # (auto) 0.03 K/uL (0-0.2); Basophils % (auto) 0.4 %; Eosinophils # (auto) 0.21 K/uL (0-0.5); Eosinophils % (auto) 2.9 %; Hematocrit (blood only) 43.9 % (42-52); Hemoglobin 14.4 g/dL (14.0-18.0); Immature Granulocytes # (auto) 0.01 K/uL (0.00-0.02); Immature Granulocytes % (auto) 0.1 %; Lymphocytes # (auto) 3.03 K/uL (1.2-3.4); Lymphocytes % (auto) 41.7 %; Mean Corpuscular Hemoglobin 30.9 pg (25-34); Mean Corpuscular Hgb Conc 32.8 g/dL (32-36); Mean Corpuscular Volume 94.2 fL (80-100); Mean Platelet Volume 10.2 fL (7.4-10.4); Monocytes # (auto) 0.68 K/uL (0.11-0.59); Monocytes % (auto) 9.4 %; Neutrophils # (auto) 3.31 K/uL (1.4-6.5); Neutrophils % (auto) 45.5 %; Platelet Count 248 K/uL (130-400); RDW Coefficient of Variation 13.2 % (11.5-14.5); Red Blood Count 4.66 M/uL (4.7-6.1); White Blood Count 7.27 K/uL (4.8-10.8)
[2021-09-05 06:59] LABS: BUN Creatinine Ratio 12.9 (10-20); Calcium 8.6 mg/dl (8.5-10.1); Creatinine Clr Calc Pharmacy 124.7 ml/min; Est GFR (African American) 97.3 ml/min; Est GFR (Non-African American) 83.9 ml/min; Potassium 4.1 mmol/L (3.5-5.1)
--- NOTE | 2021-09-05 08:12 | Orthopedic Progress Note ---
Date of Service September 05, 2021 Assessment & Plan (1) Full thickness rotator cuff tear: Plan: Postop day 1 status post rotator cuff repair. PT/OT protocols. Sling for now. Pain management as written. Plan for dc to home today Admission and Anticipated Discharge Date Admission Date: September 04, 2021 Subjective Postop day 1 Patient is sitting up in his bed awake and alert. No complaints this morning other than his normal chronic low back pain. He states he has a slight ache in his right shoulder but is tolerating it quite well. He states that the block is wearing off and he has some residual numbness in his right thumb however that is continuing to resolve. He is hoping to go home today. Physical Exam Physical Exam: Dressings are clean, dry, and intact. He has good range of motion of his right wrist and fingers. Neurovascular is intact. Other than some slight tingling in his right thumb. Capillary refill is less than 2 seconds[address] is in place. Results & Data ([facility]) Vital Signs (Past 12 Hours) Vital Signs Temp Pulse Pulse Resp BP Pulse Ox 09/05/21 07:48 36.7 C 91 H 16 113/70 94 09/05/21 03:55 36.5 C 86 22 102/64 91 09/04/21 22:35 36.7 C 92 H 22 102/53 L 94 09/04/21 20:54 36.8 C 83 22 100/62 92 (1) Full thickness rotator cuff tear Rotator cuff tear trauma status: unspecified whether traumatic Laterality: right Qualified Code(s): M75.121 - Complete rotator cuff tear or rupture of right shoulder, not specified as traumatic
[2021-09-05] MEDS: oxyCODONE HCL 15 MG TABCR (OxyCONTIN) PO SCH (08:37)
[2021-09-05] MEDS: GABAPENTIN 800 MG TAB PO SCH (08:38)
[2021-09-05] MEDS: DOCUSATE SODIUM 100 MG CAP PO SCH (08:39)
[2021-09-05] MEDS: buPROPion XL 150 MG TABCR PO SCH (08:41)
[2021-09-05] MEDS: busPIRone 15 MG TAB PO SCH (08:41)
[2021-09-05] MEDS ORDERED: TOCOPHERYL, DL-ALPHA 100 UNITS CAP PO SCH (09:00)
[2021-09-05] MEDS ORDERED: CETIRIZINE HCL 10 MG TABLET PO SCH (09:00)
[2021-09-05] MEDS ORDERED: MULTIVITAMIN TAB PO SCH (09:00)
[2021-09-05] MEDS ORDERED: CHOLECALCIFEROL 5,000 UNITS 125 MCG TAB PO SCH (09:00)
[2021-09-05] MEDS ORDERED: LISINOPRIL/HCTZ 20/12.5MG 1 TAB TAB PO SCH (09:00)
[2021-09-05] MEDS ORDERED: VENLAFAXINE HCL XR 150 MG CAPXR PO SCH (09:00)
--- NOTE | 2021-09-05 10:13 | Hospitalist Progress Note ---
Date of Service September 05, 2021 Assessment & Plan (1) Full thickness rotator cuff tear: Plan: S/p Right Shoulder arthroscopic rotator cuff repair high-grade bursal side rotator cuff tear, subacromial decompression, distal clavicle excision, subacromial bursectomy. POD#1 Pain is controlled (2) Chronic back pain: Plan: Continue home pain regimen Continue follow up with pain management (3) Hypertension: Plan: Controlled Continue home lisinopril-HCTZ (4) Anxiety: Plan: Continue home venlafaxine, bupropion Admission and Anticipated Discharge Date Admission Date: September 04, 2021 Subjective Patient seen and examined Reports right shoulder surgical pain is well controlled Has chronic back pain Denied all other symptoms in ROS Physical Exam Constitutional: + well hydrated and + obese; no acute distress Eyes: PERRL, conjunctivae normal, anicteric sclerae ENMT: external ear and nose normal, oropharynx normal Respiratory: normal respiratory effort, lungs clear to auscultation Cardiovascular: Rate/Rhythm: regular rate and regular rhythm S1 S2 Gastrointestinal (Abdomen): normal bowel sounds, soft, nontender, no hepatosplenomegaly Musculoskeletal: Clean dressing over right shoulder surgical site Right UE in sling Neurologic: PERRL, EOMI, accommodation nl, no face palsy, no dysarthria Psychiatric: A+Ox3, euthymic affect Results & Data Results & Data ([facility]) Vital Signs (Past 12 Hours) Vital Signs Temp Pulse Pulse Resp BP Pulse Ox Pulse Ox 09/05/21 07:50 92 09/05/21 07:48 36.7 C 91 H 16 113/70 94 09/05/21 03:55 36.5 C 86 22 102/64 91 09/04/21 22:35 36.7 C 92 H 22 102/53 L 94 Laboratory Results Abnormal lab results 09/05/21 Range/Units 05:37 RBC 4.66 L (4.7-6.1) M/uL [place] # (Auto) 0.68 H (0.11-0.59) K/uL (1) Full thickness rotator cuff tear Rotator cuff tear trauma status: unspecified whether traumatic Laterality: right Qualified Code(s): M75.121 - Complete rotator cuff tear or rupture of right shoulder, not specified as traumatic
--- NOTE | 2021-09-08 18:29 | Discharge Summary ---
Date of Service September 08, 2021 Admission HPI Per Admitting Provider 55 year old male with PMHx significant for HTN, COPD, stroke, MS, and axiety who presents with ongoing right shoulder pain. Pain in interfering with patients daily activities. He has failed conservative measures including pain medication and injection. He has a full thickness rotator cuff tear and surgical intervention recommended. Patient denies headaches, sweats, fevers, chills, double vision, blurred vision, cough, sore throat, dysphagia, chest pain, sob, wheezing, n/v/d/c, numbness, tingling, fatigue, urinary symptoms, mood disorders. ROS positive for right shoulder pain and stiffness. Admission Exam Per Admitting Provider Constitutional: well developed and well nourished; no acute distress Eyes: PERRL, conjunctivae normal, anicteric sclerae ENMT: external ear and nose normal, oropharynx normal Neck: trachea midline, no thyromegaly Respiratory: normal respiratory effort, lungs clear to auscultation Cardiovascular: RRR, no murmur, no edema Musculoskeletal: Right shoulder: Tenderness AC joint, biceps tendon, AL acromion. Positive impingement signs. Positive O'nellie's, positive cross body, positive Speed's. Active painful ROM. FF to 180 degrees, abduction to 180 degrees. Strength testing is painful. Skin: no rashes, warm and dry Neurologic: patellar DTR's 2+ bilat, sensation intact Psychiatric: A+Ox3, euthymic affect Principal Diagnosis Right shoulder rotator cuff tear Discharge Exam Dressings are clean, dry, and intact. He has good range of motion of his right wrist and fingers. Neurovascular is intact. Other than some slight tingling in his right thumb. Capillary refill is less than 2 seconds. [address]ling is in place. Discharge Data Allergies Allergy/AdvReac Type Severity Reaction Status Date / Time bee venom protein (honey bee) Allergy Unknown Anaphylaxis Verified 09/04/21 11:07 Consultations 09/04/21 19:16 Consult Hospitalist Routine Procedures Performed Operation Date: 09/04/21 12:15 Actual Procedures p Right Shoulder Arthroscopic Subacromial Decompression, Distal Clavicle Excision, Rotator Cuff Repair(Right) - Homar Taylor MD Ordered Studies 09/04/21 05:00 US - OR guided needle placemen Routine Hospital Course (1) Full thickness rotator cuff tear: Patient presented for same day admission following right shoulder arthroscopy on 09/04/21. He tolerated procedure well. The Patient had an uneventful hospital course. Post-operatively, his activity was progressed and well tolerated. Labs remained stable. [facility] medical service was consulted for medical management during admission. Pain controlled on oral medications. Please refer to daily progress notes and PT notes for complete details. After exam on 09/05/21, patient was felt to be stable for discharge home. Patient will f/u in the office in about 2 weeks for further evaluation including x-rays and incision check, sooner if having any issues or concerns. Postop day 1 status post rotator cuff repair. PT/OT protocols. Sling for now. Pain management as written. Plan for dc to home today Lab Results 09/04/21 09/04/21 09/04/21 Range/Units 10:55 10:55 10:55 WBC 7.00 (4.8-10.8) K/uL RBC 5.08 (4.7-6.1) M/uL Hgb 15.7 (14.0-18.0) g/dL Hct 46.7 (42-52) % MCV 91.9 (80-100) fL MCH 30.9 (25-34) pg MCHC 33.6 (32-36) g/dL RDW Std Deviation 43.6 (36.4-46.3) fL RDW Coeff of Giovanni 13.0 (11.5-14.5) % Plt Count 294 (130-400) K/uL MPV 9.9 (7.4-10.4) fL Immature Gran % (Auto) 0.1 % Neut % (Auto) 34.3 % Lymph % (Auto) 49.6 % [place] % (Auto) 10.7 % Eos % (Auto) 4.7 % Baso % (Auto) 0.6 % Neut # (Auto) 2.40 (1.4-6.5) K/uL Lymph # (Auto) 3.47 H (1.2-3.4) K/uL [place] # (Auto) 0.75 H (0.11-0.59) K/uL Eos # (Auto) 0.33 (0-0.5) K/uL Baso # (Auto) 0.04 (0-0.2) K/uL Immature Gran # (Auto) 0.01 (0.00-0.02) K/uL PT 10.8 (9.0-12.0) Seconds INR 1.0 (0.9-1.1) APTT 31.5 H (21.0-31.0) Seconds PTT Ratio 1.1 Sodium 137 (136-145) mmol/L Potassium 3.9 (3.5-5.1) mmol/L Chloride 99 (98-107) mmol/L Carbon Dioxide 30 (21-32) mmol/L Anion Gap 8 (3-11) BUN 13 (6-23) mg/dl Creatinine 1.15 (0.6-1.4) mg/dl Est Cr Clr Drug Dosing 109.5 ml/min Est GFR ( Amer) 83.2 ml/min Est GFR (Non-Af Amer) 71.7 ml/min BUN/Creatinine Ratio 11.3 (10-20) Glucose 88 (70-99(Fasting)) mg/dl Calcium 9.3 (8.5-10.1) mg/dl SARS-CoV-2, RNA, NAAT (NEGATIVE) 09/04/21 09/05/21 09/05/21 Range/Units 10:58 05:37 05:37 WBC 7.27 (4.8-10.8) K/uL RBC 4.66 L (4.7-6.1) M/uL Hgb 14.4 (14.0-18.0) g/dL Hct 43.9 (42-52) % MCV 94.2 (80-100) fL MCH 30.9 (25-34) pg MCHC 32.8 (32-36) g/dL RDW Std Deviation 45.0 (36.4-46.3) fL RDW Coeff of Giovanni 13.2 (11.5-14.5) % Plt Count 248 (130-400) K/uL MPV 10.2 (7.4-10.4) fL Immature Gran % (Auto) 0.1 % Neut % (Auto) 45.5 % Lymph % (Auto) 41.7 % [place] % (Auto) 9.4 % Eos % (Auto) 2.9 % Baso % (Auto) 0.4 % Neut # (Auto) 3.31 (1.4-6.5) K/uL Lymph # (Auto) 3.03 (1.2-3.4) K/uL [place] # (Auto) 0.68 H (0.11-0.59) K/uL Eos # (Auto) 0.21 (0-0.5) K/uL Baso # (Auto) 0.03 (0-0.2) K/uL Immature Gran # (Auto) 0.01 (0.00-0.02) K/uL PT (9.0-12.0) Seconds INR (0.9-1.1) APTT (21.0-31.0) Seconds PTT Ratio Sodium 138 (136-145) mmol/L Potassium 4.1 (3.5-5.1) mmol/L Chloride 102 (98-107) mmol/L Carbon Dioxide 31 (21-32) mmol/L Anion Gap 5 (3-11) BUN 13 (6-23) mg/dl Creatinine 1.01 (0.6-1.4) mg/dl Est Cr Clr Drug Dosing 124.7 ml/min Est GFR ( Amer) 97.3 ml/min Est GFR (Non-Af Amer) 83.9 ml/min BUN/Creatinine Ratio 12.9 (10-20) Glucose 83 (70-99(Fasting)) mg/dl Calcium 8.6 (8.5-10.1) mg/dl SARS-CoV-2, RNA, NAAT NEGATIVE (NEGATIVE) Total Time Total Time Spent Total Time Spent (In Minutes): 20 Discharge Plan Discharge Items Patient Disposition: Home - Self-Care Reason For Visit: rotator cuff tear right Discharge Diagnosis: rotator cuff tear right Activity: Per Instructions section Lifting: None Non-emergency contact: Surgeon Call non-emergency contact if: your pain is not controlled, your temperature is above 101.5, your wound has increased redness and your wound has increased drainage Follow-up/Referrals: Homar Taylor MD [Surgeon] - (follow up in 10-14 days from the day of surgery for your first wound check) Mihaela Alvarado M.D. [Primary Care Provider] - Diet: Regular Addtl Attending Provider Instructions: [facility] DISCHARGE INSTRUCTIONS: ROTATOR CUFF REPAIR SELF CARE INSTRUCTIONS A. You are permitted to loosen your sling/immobilizer to move your elbow, wrist, and hand to prevent stiffness. You should use your well arm (good arm) to assist the operated extremity when trying to raise the arm away from the body, hygiene purposes. Do NOT actively try to use/engage your shoulder muscles in operative arm at this time. You should NOT do overhead activity, lifting, or attempt to reach behind your back. B. We will not do formal physical therapy with your shoulder until you are about 3 weeks post op. You will receive an order once you are to start. C. At 48 hours post-operatively, you may change your dressing. (Leave white steri-strips intact if present). Use band-aids and change daily. You are allowed to shower at this time and get the incision area wet, but DO NOT soak or submerge incision area in water. (No baths, swimming pools, hot tubs) D. Do NOT apply soap or any ointment/lotions directly over incision. E. You may use ice as needed to operative shoulder SPECIAL CARE INSTRUCTIONS: VERY IMPORTANT TO READ AND REVIEW A. There are a few signs you need to watch for after you are home. Call [facility] at [phone] if you experience any of the following: a. Increased severe shoulder pain. Some pain is expected especially when you exercise b. Increased swelling in your shoulder or arm; pain or swelling in either upper extremity. (Note: swelling and stiffness is normal and expected for several weeks post op, depending on type of shoulder surgery you had). c. Any fluid or drainage from the incision; redness of the incision. d. Shortness of breath or chest pain. B. Please call [facility] at [phone] if you have any questions or concerns about your operation or recovery. C. Call your physician if: a. Temperature is greater than 101 degrees (F). b. Pain is not relieved by prescribed pain medications. c. Increase drainage or redness from incision. d. Unanswered questions or concerns. D. Pain Medication: a. You will be prescribed pain medication upon discharge that should last till your first post-operative appointment. b. If you experience nausea and/or skin rash, discontinue this medication and contact our office for an alternative medication. c. Caution- narcotic pain medication can cause constipation. FOLLOW UP VISIT: Please call [facility] at [phone] to schedule a follow up appointment 10-14 days from your surgery date. Stand-Alone Forms: My [facility], Smoking Cessation Medications and DC Order Prescriptions: New acetaminophen [Tylenol Extra Strength] 500 mg Tablet 1,000 mg PO Q8 14 Days Qty: 84 RF: 0 Continued cetirizine 10 mg Tablet 10 mg PO QPM RF: 0 lisinopril-hydrochlorothiazide 20-12.5 mg Tablet 1 tab PO QAM RF: 0 venlafaxine 150 mg Capsule,Extended Release 24hr 150 mg PO QAM RF: 0 gabapentin 800 mg Tablet 800 mg PO QID RF: 0 baclofen 10 mg Tablet 10 mg PO TID PRN (Reason: Muscle Spasm) RF: 0 vitamin E 400 unit Capsule 400 unit PO QAM RF: 0 buspirone 15 mg Tablet 30 mg PO BID RF: 0 bupropion HCl 150 mg Tablet Extended Release 24 Hr 150 mg PO BID RF: 0 cholecalciferol (vitamin D3) [Vitamin D3] 125 mcg (5,000 unit) Tablet 125 mcg PO QAM RF: 0 albuterol sulfate 90 mcg/actuation Hfa Aerosol Inhaler 2 puff INHALATION QID PRN (Reason: Wheezing) RF: 0 oxycodone 15 mg Tablet 15 mg PO BID PRN (Reason: Pain) RF: 0 cyanocobalamin (vitamin B-12) 1,000 mcg/mL Solution 1,000 mcg IM UD RF: 0 oxycodone 15 mg Tablet Extended Release 12 Hr 15 mg PO BID RF: 0 Discharge Orders: Discharge Order (Routine); Ordered 09/05/21 Ordered By: Flo Kovacs/Other Patient Handouts: Total Shoulder Replacement Surgery Admission Data Admit Date/Time: 09/04/21 16:30 Attending Provider: Homar Taylor Admit Provider: Homar Taylor Primary Care Provider: Mihaela Alvardao Other Providers: Arthur Sher ; Miesha Navarro I. Other Interventions: Discharge Summary Assessment (RN) Last Done: 09/05/21 11:27
== END 2021-09-05 12:09 | disposition home or self-care (01) ==
LOC: 3E 10:33 → ASU 10:33